=== PATIENT | female | born 1955 | race Caucasian/White ===

== ENCOUNTER 2020-06-21 07:06 | Day surgery (SDC) | payer MEDICARE, OTHER ==
--- NOTE | 2020-06-18 10:29 | HP ---
DATE OF SURGERY: 06/21/2020 HISTORY OF PRESENT ILLNESS: The patient presented with complaints of change in bowel habits. It appears that she had a colonoscopy six or seven years ago and she reports it was normal. States there may have been some dark tarry stool at some point. She denies bleeding currently. PAST MEDICAL HISTORY: Thyroid. Depression. Hypertension. Chronic obstructive pulmonary disease. Fibromyalgia. PAST SURGICAL HISTORY: Gastric bypass, Sarthak-en-[id number]. Hysterectomy. Appendectomy. ALLERGIES: PENICILLIN. CEFACLOR. DIAZEPAM. DULOXETINE. MEDICATIONS: Synthroid, tizanidine, Paxil, Sertraline, Toprol, amitriptyline. FAMILY HISTORY: Heart disease. Kidney disease. Hypertension. Cancer. SOCIAL HISTORY: None reported. REVIEW OF SYSTEMS: CONSTITUTIONAL: Denies fever or chills. CHEST: Denies shortness of breath. CVS: Denies chest pain. ABDOMEN: Denies abdominal pain, nausea, vomiting, diarrhea, constipation. Reports occasional rectal bleeding. PHYSICAL EXAMINATION: GENERAL: No acute distress. CHEST: Nonlabored. No shortness of breath. CVS: Regular rate and rhythm. ABDOMEN: Soft, nontender to palpation. EXTREMITIES: No edema. NEUROLOGIC: Alert. PSYCHIATRIC: Appropriate. IMPRESSION: Change in bowel habits. PLAN: Colonoscopy with Dr. Blas Beauchamp. As dictated by Katharina Lechuga NP.
[2020-06-21] MEDS ORDERED: Lactated Ringers 1,000 ML IV SCH (07:30)
[2020-06-21] MEDS ORDERED: Lactated Ringers 1,000 ML IV ONE (07:30)
[2020-06-21] MEDS ORDERED: Versed 2 MG/2 ML Injection ONE (09:28)
[2020-06-21] MEDS ORDERED: DIPRIVAN 200 MG/20 ML IV ONE ×2 (09:28→09:50)
[2020-06-21] MEDS ORDERED: SUBLIMAZE 100 MCG/2 ML ONE (09:43)
[2020-06-21] MEDS ORDERED: TRANDATE 20 MG/4 ML SYRINGE IV ONE (09:52)
[2020-06-21 11:09] VITALS: O2SAT 98
[2020-06-21 11:42] VITALS: BP 148/78; PULSE 72
--- NOTE | 2020-06-21 13:48 | OP ---
SURGERY DATE/TIME: 06/21/2020 0928 PREOPERATIVE DIAGNOSIS: Change in bowel habits. POSTOPERATIVE DIAGNOSIS: Severe sigmoid diverticulosis. PROCEDURE: Colonoscopy complete to cecum. SURGEON: Blas Beauchamp M.D. ANESTHESIA: MAC. COMPLICATIONS: None. CONDITION: Stable. INDICATION: A patient requiring evaluation, change in bowel habits. DESCRIPTION OF PROCEDURE: Anal digital examination satisfactory. Rectum satisfactory. Sigmoid several areas of angulation, severe sigmoid diverticulosis but after this was navigated scope was advanced up to the cecum. Base of the cecum, ileocecal valve, appendiceal area normal. Circumferential withdrawal was normal. IMPRESSION: Severe sigmoid diverticulosis. PLAN: Follow up five years.
== END 2020-06-21 11:30 | disposition home or self-care (01) ==
LOC: SDC 07:06
PROVIDERS: ATTEND Surgery
DX: K57.30 Diverticulosis of large intestine without perforation or abscess without bleeding (principal); R19.4 Change in bowel habit; Z80.9 Family history of malignant neoplasm, unspecified; I10 Essential (primary) hypertension; J44.9 Chronic obstructive pulmonary disease, unspecified; Z79.899 Other long term (current) drug therapy
CPT/HCPCS: J2250; J2704; J3010

== ENCOUNTER 2021-04-24 14:21 | Day surgery (SDC) | payer MEDICARE, OTHER ==
[2021-04-24] MEDS ORDERED: Depo-Medrol 40 MG/ML IM ONE (14:22)
[2021-04-24] MEDS ORDERED: Xylocaine 1% Vial 30 ML PF IJ ONE (14:22)
[2021-04-24] MEDS ORDERED: BUPIVACAINE 0.5% VIAL IJ ONE (14:22)
--- NOTE | 2021-04-24 18:31 | XRAY ---
Indication: Left shoulder and subacromial bursa injections. Intraoperative fluoroscopy provided for 26 seconds. 3 digital spot image submitted for interpretation demonstrates needle tip projecting over the left glenohumeral joint superiorly. Second needle tip subacromial. Small amount of contrast injected for both needle tip placement. Correlate with intraoperative findings/report.
--- NOTE | 2021-04-25 08:35 | XRAY ---
26 seconds fluoroscopy time in surgery for intra-articular and subacromial injections of the left shoulder.
== END 2021-04-24 17:27 | disposition home or self-care (01) ==
LOC: SDC-PAIN 14:21
PROVIDERS: ATTEND Psychiatry & Neurology Pain Medicine
DX: M19.012 Primary osteoarthritis, left shoulder (principal); M75.52 Bursitis of left shoulder; E11.9 Type 2 diabetes mellitus without complications; Z79.899 Other long term (current) drug therapy
CPT/HCPCS: 20610; 73030; 77002; 82947; J1030; J2001; Q9966

== ENCOUNTER 2022-10-15 14:29 | Day surgery (SDC) | payer MEDICARE, OTHER ==
[2022-10-15] MEDS ORDERED: BUPIVACAINE 0.5% VIAL IJ ONE (14:30)
[2022-10-15] MEDS ORDERED: LIDOCAINE HCL 1% 50 MG/5 ML VL PF IJ ONE (14:30)
[2022-10-15] MEDS ORDERED: Depo-Medrol 40 MG/ML IM ONE (14:30)
--- NOTE | 2022-10-16 08:40 | XRAY ---
Indication: Left shoulder and subacromial bursa injection. Intraoperative fluoroscopy provided for 24 seconds. 2 digital spot images submitted for interpretation demonstrates needle tip projecting over left glenohumeral joint superiorly. Second needle tip subacromial. Small amount of contrast injected for needle tip placement. Correlate with intraoperative findings/report.
--- NOTE | 2022-10-17 10:04 | XRAY ---
24 seconds of fluoroscopy was used in surgery for a left intra-articular shoulder and subacromial bursa injection.
== END 2022-10-15 17:15 | disposition home or self-care (01) ==
LOC: SDC-PAIN 14:29
PROVIDERS: ATTEND Psychiatry & Neurology Pain Medicine
DX: M19.012 Primary osteoarthritis, left shoulder (principal); Z79.899 Other long term (current) drug therapy
CPT/HCPCS: 20610; 73030; 77002; 82947; J1030; J2001; Q9966

== ENCOUNTER 2023-02-11 15:15 | Day surgery (SDC) | payer MEDICARE, OTHER ==
[2023-02-11] MEDS ORDERED: XYLOCAINE-MPF 1% 5ML SDV IJ ONE (15:16)
[2023-02-11] MEDS ORDERED: BUPIVACAINE 0.5% VIAL IJ ONE (15:16)
[2023-02-11] MEDS ORDERED: Depo-Medrol 40 MG/ML IM ONE (15:16)
--- NOTE | 2023-02-11 19:49 | XRAY ---
Indication: Left shoulder and subacromial bursa injection. Intraoperative fluoroscopy provided for 16 seconds. 3 digital spot images submitted for interpretation demonstrates needle tip projecting over the left glenohumeral joint superiorly. Second needle tip subacromial. Small amount of contrast injected for both needle tip placement. Correlate with intraoperative findings/report.
--- NOTE | 2023-02-12 12:37 | XRAY ---
16 seconds of fluoroscopy was used in surgery for a left intra-articular shoulder and left subacromial bursa injection.
== END 2023-02-11 17:55 | disposition home or self-care (01) ==
LOC: SDC-PAIN 15:15
PROVIDERS: ATTEND Psychiatry & Neurology Pain Medicine
DX: M19.012 Primary osteoarthritis, left shoulder (principal); M75.52 Bursitis of left shoulder; E11.9 Type 2 diabetes mellitus without complications
CPT/HCPCS: 20610; 73030; 77002; 82947; J1030; Q9966

== ENCOUNTER 2023-05-06 06:35 | Day surgery (SDC) | payer MEDICARE, OTHER ==
[2023-05-06] MEDS ORDERED: BUPIVACAINE 0.5% VIAL IJ ONE (06:36)
[2023-05-06] MEDS ORDERED: Depo-Medrol 40 MG/ML IM ONE (06:36)
[2023-05-06] MEDS ORDERED: DIPRIVAN 200 MG/20 ML IV ONE (08:29)
[2023-05-06] MEDS ORDERED: Lactated Ringers 1,000 ML IV ONE (10:01)
--- NOTE | 2023-05-06 10:08 | XRAY ---
Indication: Bilateral SI joint injection. Intraoperative fluoroscopy provided for 19 seconds. 4 digital spot image submitted for interpretation demonstrates posterior needle tip projecting over left and right SI joint. Correlate with intraoperative findings/report.
--- NOTE | 2023-05-06 12:08 | XRAY ---
19 seconds of fluoroscopy was used in surgery for a bilateral sacroiliac joint injection.
== END 2023-05-06 08:58 | disposition home or self-care (01) ==
LOC: SDC-PAIN 06:35
PROVIDERS: ATTEND Psychiatry & Neurology Pain Medicine
DX: M46.1 Sacroiliitis, not elsewhere classified (principal); R73.03 Prediabetes
CPT/HCPCS: 01992; 27096; 72202; 77002; 82947; G0260; J1030; J2704

== ENCOUNTER 2023-08-26 08:24 | Day surgery (SDC) | payer MEDICARE, OTHER ==
[2023-08-26] MEDS ORDERED: BUPIVACAINE 0.5% VIAL IJ ONE (08:25)
[2023-08-26] MEDS ORDERED: Depo-Medrol 40 MG/ML IM ONE (08:25)
[2023-08-26] MEDS ORDERED: DIPRIVAN 200 MG/20 ML IV ONE ×2 (10:50→11:04)
[2023-08-26] MEDS ORDERED: Lactated Ringers 1,000 ML IV ONE (11:40)
--- NOTE | 2023-08-26 12:13 | XRAY ---
Indication: Right shoulder and subacromial bursa injection. Intraoperative fluoroscopy provided for 16 seconds. 2 lateral digital spot image submitted for interpretation demonstrates needle tip projecting over right glenohumeral joint superiorly. Second needle tip subacromial. Small amount of contrast injected for needle tip placement. Correlate with intraoperative findings/report.
--- NOTE | 2023-08-26 12:13 | XRAY ---
Indication: Left shoulder and subacromial bursa injection. Intraoperative fluoroscopy provided for 17 seconds. 2 lateral digital spot image submitted for interpretation demonstrates needle tip projecting over left glenohumeral joint superiorly. Second needle tip subacromial. Small amount of contrast injected for needle tip placement. Correlate with intraoperative findings/report.
--- NOTE | 2023-08-26 12:25 | XRAY ---
16 seconds of fluoroscopy was used in surgery for a right intra-articular shoulder and subacromial bursa injection.
--- NOTE | 2023-08-26 12:27 | XRAY ---
17 seconds of fluoroscopy was used in surgery for a left intra-articular shoulder and subacromial bursa injection.
== END 2023-08-26 11:30 | disposition home or self-care (01) ==
LOC: SDC-PAIN 08:24
PROVIDERS: ATTEND Psychiatry & Neurology Pain Medicine
DX: M19.012 Primary osteoarthritis, left shoulder (principal); M19.011 Primary osteoarthritis, right shoulder; M75.52 Bursitis of left shoulder; M75.51 Bursitis of right shoulder; R73.03 Prediabetes
CPT/HCPCS: 20610; 73030; 77002; 82947; J2704; Q9966

== ENCOUNTER 2023-12-02 07:04 | Day surgery (SDC) | payer MEDICARE, OTHER ==
[2023-12-02] MEDS ORDERED: BUPIVACAINE 0.5% VIAL IJ ONE (07:05)
[2023-12-02] MEDS ORDERED: Depo-Medrol 40 MG/ML IM ONE (07:05)
[2023-12-02] MEDS ORDERED: DIPRIVAN 200 MG/20 ML IV ONE (08:42)
--- NOTE | 2023-12-02 12:23 | XRAY ---
Indication: Right SI joint and greater trochanter bursa injection. Intraoperative fluoroscopy provided for 19 seconds. 2 digital spot image submitted for interpretation demonstrates posterior needle tip projecting over right SI joint. Second needle tip lateral to right greater trochanter. Small amount of contrast injected for both needle tip placement. Correlate with intraoperative findings/report.
--- NOTE | 2023-12-02 12:36 | XRAY ---
19 seconds of fluoroscopy was used in surgery for a right sacroiliac joint and greater trochanteric bursa injection.
== END 2023-12-02 09:13 | disposition home or self-care (01) ==
LOC: SDC-PAIN 07:04
PROVIDERS: ATTEND Psychiatry & Neurology Pain Medicine
DX: M46.1 Sacroiliitis, not elsewhere classified (principal); R73.03 Prediabetes; M70.61 Trochanteric bursitis, right hip
CPT/HCPCS: 20610; 27096; 73501; 77002; 82947; G0260; J2704; Q9966

== ENCOUNTER 2024-06-08 07:59 | Day surgery (SDC) | payer MEDICARE, OTHER ==
[2024-06-08] MEDS ORDERED: BUPIVACAINE 0.5% VIAL IJ ONE (08:00)
[2024-06-08] MEDS ORDERED: Depo-Medrol 40 MG/ML IM ONE (08:00)
[2024-06-08] MEDS ORDERED: propofoL IV ONE (09:29)
[2024-06-08] MEDS ORDERED: MORPHINE SULFATE 2 MG INJ ONE (09:43)
[2024-06-08] MEDS ORDERED: Lactated Ringers 1,000 ML IV ONE (09:52)
--- NOTE | 2024-06-08 12:35 | XRAY ---
Indication: Right SI joint and greater trochanter bursa injection. Intraoperative fluoroscopy provided for 24 seconds. 2 digital spot images submitted for interpretation demonstrates posterior needle tip projecting over right SI joints. Second needle tip lateral to right greater trochanter. Small amount of contrast injected for needle placement. Correlate with intraoperative findings/report.
--- NOTE | 2024-06-08 13:07 | XRAY ---
24 seconds of fluoroscopy was used in surgery for a right sacroiliac joint and greater trochanteric bursa injection.
== END 2024-06-08 10:05 | disposition home or self-care (01) ==
LOC: SDC-PAIN 07:59
PROVIDERS: ATTEND Psychiatry & Neurology Pain Medicine
DX: M46.1 Sacroiliitis, not elsewhere classified (principal); R73.03 Prediabetes; M70.61 Trochanteric bursitis, right hip
CPT/HCPCS: 20610; 27096; 73501; 77002; 82947; J2270; J2704; Q9966